=== PATIENT | male | born 1955 | race Hispanic/Latino ===

== ENCOUNTER → 2023-02-18 | Outpatient (CLI) | payer OTHER ==
[2023-02-18 14:03] LABS: APPEARANCE BODY FLUID TURBID (CLEAR); COLOR,BODY FLUID LT YELLOW (LT YELLOW); SPECIMENTYPE,BODY FLUID SYNOVIAL; TOTAL VOLUME,BODY FLUID 40 mL
[2023-02-18 14:04] LABS: BODY FLUID WBC 2335 /cu. mm.
[2023-02-18 14:05] LABS: BODY FLUID RBC 1850 /cu. mm.
[2023-02-18 14:13] LABS: BF LYMPHOCYTE 20 %; BF MONOCYTE 8 %
[2023-02-18 20:41] LABS: CRYSTALS, SYNOVIAL FLUID Ca Phyrophos - Few
== END | disposition home or self-care (01) ==
LOC: LAB 10:43
PROVIDERS: ATTEND Orthopaedic Surgery
DX: M25.462 Effusion, left knee (principal)
CPT/HCPCS: 87070; 87076; 89051; 89060

== ENCOUNTER → 2024-01-20 | Outpatient (CLI) | payer OTHER | END | disposition home or self-care (01) | LOC: LAB 16:43 | PROVIDERS: ATTEND Student in an Organized Health Care Education/Training Program | DX: M10.9 Gout, unspecified (principal) | CPT/HCPCS: 89060 ==

== ENCOUNTER 2025-02-21 10:48 | Inpatient (IN) | payer OTHER ==
[~2025-02-21] VITALS: Ht 167.6 cm; Wt 88.9 kg
[2025-02-21 11:28] LABS: BASOPHILS # (AUTO) 0.01 K/uL (0.00-0.20); BASOPHILS % (AUTO) 0.1 % (0.0-5.0); EOSINOPHILS # (AUTO) 0.02 K/uL (0.00-0.70); EOSINOPHILS % (AUTO) 0.2 % (0.0-8.0); HEMATOCRIT 39.7 % (42-54); IMMATURE GRANULOCYTE ABSOLUTE 0.02 K/uL (0-1); LYMPHOCYTES # (AUTO) 0.2 K/uL (1.0-4.8); LYMPHOCYTES % (AUTO) 2.1 % (21.0-51.0); MEAN CORPUSCULAR HEMOGLOBIN 31.1 pg (27.0-33.0); MEAN CORPUSCULAR HGB CONC 33.8 g/dL (32.0-36.0); MEAN CORPUSCULAR VOLUME 92.1 fL (79-99); MONOCYTES # (AUTO) 0.3 K/uL (0.1-1.0); MONOCYTES % (AUTO) 3.5 % (3.0-13.0); NEUTROPHILS % (AUTO) 93.9 % (40.0-77.0); PLATELET COUNT (AUTO) 147 K/uL (130-400); RED BLOOD CELL COUNT(AUTO) 4.31 MIL/uL (4.50-6.20); RED CELL DISTRIBUTION WIDTH 14.5 % (11.0-15.5); WHITE BLOOD COUNT (AUTO) 8.6 K/uL (4.8-10.8)
[2025-02-21] MEDS ORDERED: LACTATED RINGERS 1000ML 1,000 ML IV ONE (11:30)
[2025-02-21 11:45] LABS: POTASSIUM 5.8 mmol/L (3.5-5.1)
[2025-02-21] MEDS ORDERED: 0.9%NACL 1000ML 1,000 ML IV SCH (12:00)
--- NOTE | 2025-02-21 12:00 | ERN ---
General Chief Complaint: Hypotension Stated Complaint: DIZZY,FALLS, N/V/D Time Seen by MD: 10:55 History of Present Illness Initial Comments 70-year-old male brought in by EMS from home for hypotension. Patient had nausea or vomiting diarrhea for the last 24 hours or so. Multiple episodes. He felt very weak, he had a controlled fall. EMS found his blood pressure to be 60/40 with a heart rate in the 110. Patient received 1500 mL bolus in the field, blood pressure has improved. No cough congestion or fever. History of d iabetes, hypertension, Parkinson's disease. Allergies: Uncoded Allergies: NO KNOWN ALLERGY (Allergy, Unknown, 02/21/25) Home Meds Reported Medications Isosorbide Dinitrate (Isosorbide Dinitrate) 30 Mg Tablet, 1 TAB PO DAILY for chest pain for 30 Days, #30 TAB 0 Refills 02/21/25 Omeprazole (Omeprazole) 40 Mg Capsule.dr, 1 CAP PO DAILY for 30 Days, #30 CAP 0 Refills 02/21/25 Glipizide (Glipizide) 5 Mg Tablet, 1 TAB PO DAILY for 30 Days, #30 TAB 0 Refills 02/21/25 Lisinopril (Lisinopril) 20 Mg Tablet, 1 TAB PO DAILY for 30 Days, #30 TAB 0 Refills 02/21/25 Folic Acid/Vitamin B Comp W-C ([place]-Giselle Tablet) 0.8 Mg Tablet, 1 TAB PO DAILY for 30 Days, #30 TAB 0 Refills 02/21/25 Ropinirole HCl (Ropinirole HCl) 0.25 Mg Tablet, 1 TAB PO HS for 30 Days, #30 TAB 0 Refills 02/21/25 Aspirin (ASPIRIN 81 MG ECTAB) 81 Mg Ectab, 81 MG PO DAILY, TAB.EC 02/21/25 Rosuvastatin Calcium (Rosuvastatin Calcium) 5 Mg Tablet, 1 TAB PO DAILY 02/21/25 Gabapentin (Gabapentin) 100 Mg Capsule, 100 MG PO TID 02/21/25 Atenolol (Atenolol) 50 Mg Tablet, 1 TAB PO DAILY 02/21/25 Carbidopa/Levodopa (Carbidopa-Levodopa 25-100 Tab) 25 Mg-100 Mg Tablet, 1.5 TAB PO TID 02/21/25 Past Medical History Past Medical History: Diabetes-Type II, Hypertension Medical History Other: PARKINSONS Past Surgical History: Unknown ROS Dictation CONSTITUTIONAL: Weakness HEAD/FACE: No signs of trauma. EENT: No eye pain, no blurred vision, no tearing, no double vision, no ear pain, no ear discharge, no nose pain, no nasal congestion, no throat pain, no throat swelling, no mouth pain. RESPIRATORY: No cough, no orthopnea, no SOB, no stridor, no wheezing. CARDIOVASCULAR: No chest pain, no edema, no palpitations, no syncope. GASTROINTESTINAL/ABDOMINAL: Vomiting diarrhea GENITOURINARY: No abnormal discharge, no dysuria, no frequent urination, no hematuria. No complaints of pain in the genitals. MUSCULOSKELETAL: No back pain, no gout, no joint pain, no joint swelling, no muscle pain, no muscle stiffness, no neck pain. INTEGUMENTARY: No change in color, no change in hair/nails, no dryness, no lesion, no lumps, no rash. NEUROLOGICAL/PSYCH: No anxiety, not depressed, no emotional problem, no headache, no numbness, no pre-existing deficit, no history of seizures, no tremors, no weakness. HEMATOLOGIC/LYMPHATIC: Not anemic, no history of blood clots, no apparent bleeding, no bruising, glands not swollen. All Systems Negative, Except as Noted. Physical Exam Physical Exam Dictation VITAL SIGNS: Reviewed. GENERAL APPEARANCE: Alert, oriented x3, no acute distress HEAD AND FACE: Non-traumatic. EYES: PERRL, pink conjunctivas, eyelid no trauma, anterior chamber clear. EARS: Pinnas intact and no signs of trauma or erythema. Ear canals clear and no discharge. TMs no erythema. NOSE: No discharge, no bleeding. OROPHARYNX: Mouth normal, teeth no caries, tongue pink. Pharynx clear, no erythema. Tonsils no exudates, no abscesses noted. Mucous membrane moist. NECK: Supple, non-tender, no thyromegaly, no masses, no JVD, no bruits. BREAST: Deferred. CHEST: No tenderness, no crepitus, no paradoxical movement, no retractions. LUNGS: Clear, well-ventilated, symmetric, no rales, no wheezing, no rhonchi, no stridor, good breath sounds bilaterally. HEART: Regular rate, regular rhythm, no murmur, no gallops. VASCULAR: No peripheral edema. ABDOMEN: Soft, positive bowel sounds, nondistended, no guarding, nontender, no rebound, no masses no hepatomegaly, no splenomegaly, no Last's sign, no hernias. RECTAL: Deferred. GENITAL: Deferred. NEUROLOGICAL: Normal speech, gross motor function intact, gross sensory function intact. MUSCULOSKELETAL: Neck nontender, full range of motion, back nontender, full range of motion. EXTREMITIES: Nontender, full range of motion. SKIN: Color pink, dry, no turgor, no rash, no lacerations, no abrasions, no contusions. LYMPHATICS: Deferred. Results Laboratory and Microbiology Lab and Micro Result Laboratory Tests Test 02/21/25 11:14 White Blood Count 8.6 K/uL (4.8-10.8) Red Blood Count 4.31 MIL/uL (4.50-6.20) L Hemoglobin 13.4 g/dL (14.0-18.0) L Hematocrit 39.7 % (42-54) L Mean Corpuscular Volume 92.1 fL (79-99) Mean Corpuscular Hemoglobin 31.1 pg (27.0-33.0) Mean Corpuscular Hemoglobin Concent 33.8 g/dL (32.0-36.0) Red Cell Distribution Width 14.5 % (11.0-15.5) Platelet Count 147 K/uL (130-400) Mean Platelet Volume 11.1 fL (7.5-10.5) H Immature Granulocyte % (Auto) 0.2 % (0-1) Neutrophils (%) (Auto) 93.9 % (40.0-77.0) H Lymphocytes (%) (Auto) 2.1 % (21.0-51.0) L Monocytes (%) (Auto) 3.5 % (3.0-13.0) Eosinophils (%) (Auto) 0.2 % (0.0-8.0) Basophils (%) (Auto) 0.1 % (0.0-5.0) Neutrophils # (Auto) 8.0 K/uL (1.8-7.7) H Lymphocytes # (Auto) 0.2 K/uL (1.0-4.8) L Monocytes # (Auto) 0.3 K/uL (0.1-1.0) Eosinophils # (Auto) 0.02 K/uL (0.00-0.70) Basophils # (Auto) 0.01 K/uL (0.00-0.20) Absolute Immature Granulocyte (auto 0.02 K/uL (0-1) Nucleated Red Blood Cells 0.0 % (0.0-0.19) Sodium Level 136 mmol/L (136-145) Potassium Level 5.8 mmol/L (3.5-5.1) H Chloride Level 107 mmol/L (101-111) Carbon Dioxide Level 20 mmol/L (21-32) L Blood Urea Nitrogen 47 mg/dL (7-18) H Creatinine 2.0 mg/dL (0.5-1.3) H Glomerular Filtration Rate Calc 35 mL/min (>90) Random Glucose 201 mg/dL (70-105) H Lactic Acid Level 2.5 mmol/L (0.8-2.5) Total Calcium 7.7 mg/dL (8.5-10.1) L Total Creatine Kinase 68 U/L (21-232) Troponin I High Sensitivity 14 ng/L (4-75) MDM CC: Dizziness hypotension diarrhea Historian: Patient Comorbidities: Hypertension, diabetes, Parkinson's Limitations by social determinants of health: None Differential diagnosis, SIRS, sepsis, dehydration, surgical pathology, other. Vital signs: Blood pressure 90/51 initially heart rate of 101, he did have a slight decrease in the blood pressure 83/44. He received fluids. Afebrile. Labs (independently ordered and interpreted by me): no leukocytosis, left shift no anemia. 93% neutrophils. No bands. Chemistry panel shows potassium of 5.8, creatinine 2 BUN of 47 likely prerenal. Lactic acid 2.5. CK troponin normal. CT abdomen and pelvis without contrast (independently interpreted by me ): Enteric colitis, no surgical pathology. Treatment in ED: IV fluids ( patient already received 1.5 L pre-hospital, received another L here), IV Zosyn. On sepsis focused re-evaluation after the fluids in his Zosyn patient has stable vital signs and normal perfusion. Plan: Admit for IV rehydration. Consultation: Hospitalist for admission. ED Course Orders Procedure Category Date Status Time Cbc With Differential LAB 02/21/25 In Process 10:59 Blood Cult NAIDA 02/21/25 In Process 10:59 Urinalysis Profile LAB 02/21/25 Logged 10:59 Culture Urine NAIDA 02/21/25 Logged 10:59 Creatine Kinase, Total LAB 02/21/25 Complete 10:59 Troponin I High LAB 02/21/25 Complete Sensitivity 10:59 Lactic Acid LAB 02/21/25 Complete 10:59 Basic Metabolic Panel LAB 02/21/25 Complete 10:59 Ct Abdomen/Pelvis W/O CT 02/21/25 Resulted Contrast 10:59 Chest 1vw RAD 02/21/25 Taken 10:59 Lactated Ringers PHA 02/21/25 Complete 1000ml (Lactated 11:30 0.9%Nacl 1000ml (Ns PHA 02/21/25 Complete 1000ml) 12:00 Ct Head/Brain W/O CT 02/21/25 Taken Contrast 12:00 Ct Cervical Spine W/O CT 02/21/25 Taken Contrast 12:00 Zosyn 3.375gm+Ns 50ml PHA 02/21/25 In Process (Zosyn 3.375gm+Ns 12:30 12 Lead Ekg Tracing- EKG 02/21/25 Logged Technical 12:37 Current Medications Medications (Trade) Dose Ordered Sig/Silvia Route PRN Reason Start Time Stop Time Status Last Admin Dose Admin Lactated Ringer's 1,000 ml @ 0 mls/hr ONCE ONCE IV 02/21/25 11:30 02/21/25 12:03 DC Piperacillin Sod/ Tazobactam Sod (Zosyn 3.375gm+NS 50ml) 3.375 gm Q8H IV 02/21/25 12:30 03/03/25 12:29 Sodium Chloride 1,000 ml @ 999 mls/hr Q1H1M IV 02/21/25 12:00 02/21/25 12:03 DC Vital Signs Date Time Temp Pulse Resp B/P (MAP) Pulse Ox O2 Delivery O2 Flow Rate FiO2 02/21/25 11:00 103 14 83/44 98 Room Air* 0 21 02/21/25 10:50 99.1 101 16 90/51 99 Room Air 0 DX & DISP Disposition: Inpatient Departure Impression: Primary Impression: Dehydration Additional Impressions: Enteritis, BHARATH (acute kidney injury) Critical Time: 30 minutes (Critical Care Procedure NoteAuthorized and Performed by: meTotal critical care time: Approximately 36 minutesDue to a high probability of clinically significant, life threatening deterioration, the patient required my highest level of preparedness to intervene emergently and I personally spent this critical care time directly and personally managing the patient. This critical care time included obtaining a history; examining the patient; pulse oximetry; ordering and review of studies; arranging urgent treatment with development of a management plan; evaluation of patient's response to treatment; frequent reassessment; and, discussions with other providers.This critical care time was performed to assess and manage the high probability of imminent, life-threatening deterioration that could result in multi-organ failure. It was exclusive of separately billable procedures and treating other patients and teaching time.Please see MDM section and the rest of the note for further information on patient assessment and treatment.) Condition: Stable Referrals: SELF,REFERRAL (PCP) AICHA KINCAID DO Feb 21, 2025 12:00
--- NOTE | 2025-02-21 12:00 | NUR ---
PLACED 20G ON LEFT FOREARM. OBTAINED BLOOD SAMPLE AND SENDED TO LAB.
--- NOTE | 2025-02-21 12:25 | HMCIMG ---
CT ABDOMEN/PELVIS W/O CONTRAST HISTORY: Diarrhea COMPARISON: None TECHNIQUE: Multiple sequential axial images of the abdomen and pelvis were obtained from the dome of the diaphragm through symphysis pubis. Patient was not given contrast through intravenous route. Oral contrast was not given. FINDINGS: No pleural effusion is seen bilaterally. There is no evidence of parenchymal disease or pulmonary nodule of the visualized lower lungs. Degenerative changes of the thoracolumbar spine are present. Postop changes are seen with orthopedic fixation plates and screws at L3, L4, L5 and S1 levels. The heart is not enlarged. Gastric distention is seen. Liver measures 18 cm. There is mild small bowel dilatation with fluid-filled small bowel loops and colon suspicious for enterocolitis in the proper clinical setting. The liver, spleen, adrenal glands and pancreas are unremarkable. There is no evidence of hydronephrosis bilaterally. No evidence of renal stone is seen. Fecal material is seen in the colon. There are normal size retroperitoneal and mesenteric lymph nodes. No ascites is seen. Atherosclerotic changes are present. No definite CT evidence of acute appendicitis is seen. There is mild diverticulosis. Pelvic sidewalls are symmetric bilaterally. Bladder is well distended without wall thickening. IMPRESSION: 1. There is mild small bowel dilatation with fluid-filled small bowel loops and colon suspicious for enterocolitis in the proper clinical setting. CT was performed with one or more following dose reduction techniques: automated exposure control, adjustment of the mA and kv according to patient's size, or use of a iterative reconstruction technique.
[2025-02-21] MEDS ORDERED: AEC81 PO (12:34)
[2025-02-21] MEDS ORDERED: ATEN50TA PO (12:34)
[2025-02-21] MEDS ORDERED: ROSU5TAB51 PO (12:34)
[2025-02-21] MEDS ORDERED: CARB1TAB35 PO (12:34)
[2025-02-21] MEDS ORDERED: GABA-529 PO (12:34)
[2025-02-21] MEDS ORDERED: FOLI0.8T22 PO (12:35)
[2025-02-21] MEDS ORDERED: ROPI0.2535 PO (12:35)
[2025-02-21] MEDS ORDERED: LISI20TA24 PO (12:36)
[2025-02-21] MEDS ORDERED: GLIP5TAB15 PO (12:39)
[2025-02-21] MEDS ORDERED: OMEP40CA21 PO (12:39)
[2025-02-21] MEDS ORDERED: ISOS30TA11 PO (12:40)
[2025-02-21] MEDS ORDERED: TIRZ5PEN SQ (12:47)
--- NOTE | 2025-02-21 12:47 | NUR ---
HOME MEDICATIONS PLSCED IN SYSTEM. WAITING TO BE RECONSILED BY PHYSICIAN.
--- NOTE | 2025-02-21 12:48 | HMCIMG ---
CT HEAD/BRAIN W/O CONTRAST HISTORY: Status post fall COMPARISON: None TECHNIQUE: Multiple sequential axial images of the head were obtained from the base of the skull through vertex. Patient was not given contrast through intravenous route. FINDINGS: The ventricles and extraventricular CSF spaces are dilated consistent with cerebral atrophy. Nonspecific white matter changes seen. There is no midline shift, mass effect or herniation. No acute intracranial bleed is seen. Visualized portion of the paranasal sinuses are grossly within normal limits. IMPRESSION: 1. No acute intracranial bleed is seen. 2. Atrophy with white matter changes. CT was performed with one or more following dose reduction techniques: automated exposure control, adjustment of the mA and kv according to patient's size, or use of a iterative reconstruction technique.
--- NOTE | 2025-02-21 12:48 | HMCIMG ---
CT CERVICAL SPINE W/O CONTRAST HISTORY: Status post fall COMPARISON: None TECHNIQUE: Multiple sequential axial images of the cervical spine were obtained including post processing sagittal and coronal reconstruction images. Patient was not given contrast through intravenous route. FINDINGS: There are degenerative changes with cervical spine spondylosis. Disc space narrowing is seen at the C5-C6 level. There is straightening of normal lordotic cervical curvature which may be related to muscle spasm or positioning. There is no loss of vertebral height. Evaluation for disc and cord pathology is limited with CT study. No evidence of fracture or dislocation is seen. IMPRESSION: 1. No fracture is seen. DJD with cervical spine spondylosis. CT was performed with one or more following dose reduction techniques: automated exposure control, adjustment of the mA and kv according to patient's size, or use of a iterative reconstruction technique.
--- NOTE | 2025-02-21 12:49 | NUR ---
OBTAINED URINE SAMPLE AND SENDED TO LAB.
--- NOTE | 2025-02-21 12:50 | HMCIMG ---
CHEST 1VW HISTORY: Sepsis COMPARISON: 10/20/2005 FINDINGS: A frontal projection of the chest was obtained. No acute pulmonary infiltrates is seen. The heart is normal in size. Prominent interstitial markings are seen. Degenerative changes are seen. No evidence of aortic calcification is seen. IMPRESSION: 1. No acute pulmonary infiltrate is seen.
[2025-02-21] MEDS ORDERED: LOPERAMIDE HCL 2 MG CAP PO PRN (13:00)
[2025-02-21] MEDS ORDERED: ondanSETRON 4MG INJ IVP PRN (13:00)
[2025-02-21 13:17] LABS: APPEARANCE,URINE CLEAR (CLEAR); BILIRUBIN,URINE NEGATIVE (NEGATIVE); COLOR,URINE LIGHT-YELLOW (YELLOW); GLUCOSE, URINE (UA) NEGATIVE (NEGATIVE); KETONES,URINE NEGATIVE (NEGATIVE); LEUKOCYTE ESTERASE ,URINE NEGATIVE Leu/uL (NEGATIVE); NITRATE,URINE NEGATIVE (NEGATIVE); OCCULT BLOOD,URINE NEGATIVE (NEGATIVE); PROTEIN,URINE NEGATIVE (NEGATIVE); UROBILINOGEN,URINE 0.2 mg/dL (0.2-1.0)
[2025-02-21 13:18] LABS: ADD UA MICROSCOPIC NO
--- NOTE | 2025-02-21 13:29 | EKG ---
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
[2025-02-21] MEDS: ZOSYN 3.375GM +NS 50ML IV SCH (14:04)
[2025-02-21] MEDS: 1/2 NS 1000ML 1,000 ML IV SCH (14:05)
[2025-02-21 16:00] VITALS: BP 130/76; PULSE 84; RESP 19; TEMP 97.9
[2025-02-21 16:30] VITALS: O2SAT 98
--- NOTE | 2025-02-21 16:30 | NUR ---
Received from ER The patient is received from ER with report form the ER nurse. This patient is in no distress and has IV fluids infusing by PIV. HE denies pain and ambulates with help.
--- NOTE | 2025-02-21 16:31 | NUR ---
Call ozuna is in reach and the bed is in a low psition. The patient is encouraged to call with any of his needs or concerns.
[2025-02-21 19:00] VITALS: BP 133/82; PULSE 79; RESP 24; TEMP 98.3
[2025-02-21 20:20] VITALS: O2SAT 100
[2025-02-21] MEDS: LOPERAMIDE HCL 2 MG CAP PO PRN (20:26)
--- NOTE | 2025-02-21 22:52 | HP ---
HISTORY AND PHYSICAL NOTE DATE OF CONSULTATION: 02/21/25 REASON FOR CONSULTATION: Nausea vomiting and diarrhea HISTORY OF PRESENT ILLNESS: 70-year-old male brought in by EMS from home for hypotension. Patient had nausea or vomiting diarrhea for the last 24 hours or so. Multiple episodes. He felt very weak, he had a controlled fall. EMS found his blood pressure to be 60/40 with a heart rate in the 110. Patient received 1500 mL bolus in the field, blood pressure has improved. No cough congestion or fever. History of diabetes, hypertension, Parkinson's disease. Allergies: Uncoded Allergies: NO KNOWN ALLERGY (Allergy, Unknown, 02/21/25) Home Meds Reported Medications Isosorbide Dinitrate (Isosorbide Dinitrate) 30 Mg Tablet, 1 TAB PO DAILY for chest pain for 30 Days, #30 TAB 0 Refills 02/21/25 Omeprazole (Omeprazole) 40 Mg Capsule.dr, 1 CAP PO DAILY for 30 Days, #30 CAP 0 Refills 02/21/25 Glipizide (Glipizide) 5 Mg Tablet, 1 TAB PO DAILY for 30 Days, #30 TAB 0 Refills 02/21/25 Lisinopril (Lisinopril) 20 Mg Tablet, 1 TAB PO DAILY for 30 Days, #30 TAB 0 Refills 02/21/25 Folic Acid/Vitamin B Comp W-C ([place]-Giselle Tablet) 0.8 Mg Tablet, 1 TAB PO DAILY for 30 Days, #30 TAB 0 Refills 02/21/25 Ropinirole HCl (Ropinirole HCl) 0.25 Mg Tablet, 1 TAB PO HS for 30 Days, #30 TAB 0 Refills 02/21/25 Aspirin (ASPIRIN 81 MG ECTAB) 81 Mg Ectab, 81 MG PO DAILY, TAB.EC 02/21/25 Rosuvastatin Calcium (Rosuvastatin Calcium) 5 Mg Tablet, 1 TAB PO DAILY 02/21/25 Gabapentin (Gabapentin) 100 Mg Capsule, 100 MG PO TID 02/21/25 Atenolol (Atenolol) 50 Mg Tablet, 1 TAB PO DAILY 02/21/25 Carbidopa/Levodopa (Carbidopa-Levodopa 25-100 Tab) 25 Mg-100 Mg Tablet, 1.5 TAB PO TID 02/21/25 Past History Past Medical History Past Medical History: Diabetes-Type II, Hypertension Medical History Other: PARKINSONS Past Surgical History: Unknown Review of Systems ROS Dictation CONSTITUTIONAL: Weakness HEAD/FACE: No signs of trauma. EENT: No eye pain, no blurred vision, no tearing, no double vision, no ear pain, no ear discharge, no nose pain, no nasal congestion, no throat pain, no throat swelling, no mouth pain. RESPIRATORY: No cough, no orthopnea, no SOB, no stridor, no wheezing. CARDIOVASCULAR: No chest pain, no edema, no palpitations, no syncope. GASTROINTESTINAL/ABDOMINAL: Vomiting diarrhea GENITOURINARY: No abnormal discharge, no dysuria, no frequent urination, no hematuria. No complaints of pain in the genitals. MUSCULOSKELETAL: No back pain, no gout, no joint pain, no joint swelling, no muscle pain, no muscle stiffness, no neck pain. INTEGUMENTARY: No change in color, no change in hair/nails, no dryness, no lesion, no lumps, no rash. NEUROLOGICAL/PSYCH: No anxiety, not depressed, no emotional problem, no headache, no numbness, no pre-existing deficit, no history of seizures, no tremors, no weakness. HEMATOLOGIC/LYMPHATIC: Not anemic, no history of blood clots, no apparent bleeding, no bruising, glands not swollen. All Systems Negative, Except as Noted. ALLERGIES: Uncoded Allergies: NO KNOWN ALLERGY (Allergy, Unknown, 02/21/25) HOME MEDS: Reported Medications Tirzepatide (Mounjaro) 5 Mg/0.5 Ml Pen.injctr, 5 MG SQ AD 02/21/25 Isosorbide Dinitrate (Isosorbide Dinitrate) 30 Mg Tablet, 1 TAB PO DAILY for chest pain for 30 Days, #30 TAB 0 Refills 02/21/25 Omeprazole (Omeprazole) 40 Mg Capsule.dr, 1 CAP PO DAILY for 30 Days, #30 CAP 0 Refills 02/21/25 Glipizide (Glipizide) 5 Mg Tablet, 1 TAB PO DAILY for 30 Days, #30 TAB 0 Refills 02/21/25 Lisinopril (Lisinopril) 20 Mg Tablet, 1 TAB PO DAILY for 30 Days, #30 TAB 0 Refills 02/21/25 Folic Acid/Vitamin B Comp W-C ([place]-Giselle Tablet) 0.8 Mg Tablet, 1 TAB PO DAILY for 30 Days, #30 TAB 0 Refills 02/21/25 Ropinirole HCl (Ropinirole HCl) 0.25 Mg Tablet, 1 TAB PO HS for 30 Days, #30 TAB 0 Refills 02/21/25 Aspirin (ASPIRIN 81 MG ECTAB) 81 Mg Ectab, 81 MG PO DAILY, TAB.EC 02/21/25 Rosuvastatin Calcium (Rosuvastatin Calcium) 5 Mg Tablet, 1 TAB PO DAILY 02/21/25 Gabapentin (Gabapentin) 100 Mg Capsule, 100 MG PO TID 02/21/25 Atenolol (Atenolol) 50 Mg Tablet, 1 TAB PO DAILY 02/21/25 Carbidopa/Levodopa (Carbidopa-Levodopa 25-100 Tab) 25 Mg-100 Mg Tablet, 1.5 TAB PO TID 02/21/25 INPATIENT MEDS: Current Medications Medications Dose Ordered Sig/Silvia Start Time Stop Time Status Last Admin Piperacillin Sod/ Tazobactam Sod 3.375 gm Q8H 02/21/25 12:30 03/03/25 12:29 02/21/25 20:22 Loperamide HCl 2 mg AD PRN 02/21/25 13:00 03/23/25 12:59 02/21/25 20:26 Ondansetron HCl 4 mg Q6H PRN 02/21/25 13:00 03/23/25 12:59 Sodium Chloride 1,000 ml @ 150 mls/hr Q6H40M 02/21/25 13:00 03/23/25 12:59 02/21/25 14:05 Pantoprazole Sodium 40 mg DAILY 02/22/25 09:00 03/24/25 08:59 VITAL SIGNS Vital Signs Date Time Temp Pulse Resp B/P (MAP) Pulse Ox O2 Delivery O2 Flow Rate FiO2 02/21/25 20:20 100 Room Air* 0 21 02/21/25 19:00 98.2 79 24 133/82 100 Room Air 02/21/25 16:30 98 Room Air* 0 21 02/21/25 16:00 97.9 84 19 130/76 99 Room Air 02/21/25 11:00 103 14 83/44 98 Room Air* 0 21 02/21/25 10:50 99.1 101 16 90/51 99 Room Air 0 PHYSICAL EXAM Physical Exam Physical Exam Physical Exam Dictation VITAL SIGNS: Reviewed. GENERAL APPEARANCE: Alert, oriented x3, no acute distress HEAD AND FACE: Non-traumatic. EYES: PERRL, pink conjunctivas, eyelid no trauma, anterior chamber clear. EARS: Pinnas intact and no signs of trauma or erythema. Ear canals clear and no discharge. TMs no erythema. NOSE: No discharge, no bleeding. OROPHARYNX: Mouth normal, teeth no caries, tongue pink. Pharynx clear, no erythema. Tonsils no exudates, no abscesses noted. Mucous membrane moist. NECK: Supple, non-tender, no thyromegaly, no masses, no JVD, no bruits. BREAST: Deferred. CHEST: No tenderness, no crepitus, no paradoxical movement, no retractions. LUNGS: Clear, well-ventilated, symmetric, no rales, no wheezing, no rhonchi, no stridor, good breath sounds bilaterally. HEART: Regular rate, regular rhythm, no murmur, no gallops. VASCULAR: No peripheral edema. ABDOMEN: Soft, positive bowel sounds, nondistended, no guarding, nontender, no rebound, no masses no hepatomegaly, no splenomegaly, no Last's sign, no hernias. RECTAL: Deferred. GENITAL: Deferred. NEUROLOGICAL: Normal speech, gross motor function intact, gross sensory function intact. MUSCULOSKELETAL: Neck nontender, full range of motion, back nontender, full range of motion. EXTREMITIES: Nontender, full range of motion. SKIN: Color pink, dry, no turgor, no rash, no lacerations, no abrasions, no contusions. LYMPHATICS: Deferred. LABORATORY RESULTS Laboratory Tests 02/21/25 11:14: White Blood Count 8.6, Red Blood Count 4.31, Hemoglobin 13.4, Hematocrit 39.7, Mean Corpuscular Volume 92.1, Mean Corpuscular Hemoglobin 31.1, Mean Corpuscular Hemoglobin Concent 33.8, Red Cell Distribution Width 14.5, Platelet Count 147, Mean Platelet Volume 11.1, Immature Granulocyte % (Auto) 0.2, Neutrophils (%) (Auto) 93.9, Lymphocytes (%) (Auto) 2.1, Monocytes (%) (Auto) 3.5, Eosinophils (%) (Auto) 0.2, Basophils (%) (Auto) 0.1, Neutrophils # (Auto) 8.0, Lymphocytes # (Auto) 0.2, Monocytes # (Auto) 0.3, Eosinophils # (Auto) 0.02, Basophils # (Auto) 0.01, Absolute Immature Granulocyte (auto 0.02, Nucleated Red Blood Cells 0.0, White Cell Morphology Comment See comments, Sodium Level 136, Potassium Level 5.8, Chloride Level 107, Carbon Dioxide Level 20, Blood Urea Nitrogen 47, Creatinine 2.0, Glomerular Filtration Rate Calc 35, Random Glucose 201, Lactic Acid Level 2.5, Total Calcium 7.7, Total Creatine Kinase 68, Troponin I High Sensitivity 14 02/21/25 12:58: Urine Color LIGHT-YELLOW, Urine Appearance CLEAR, Urine pH 5.0, Urine Specific [place] 1.013, Urine Protein NEGATIVE, Urine Glucose (UA) NEGATIVE, Urine Ketones NEGATIVE, Urine Occult Blood NEGATIVE, Urine Nitrate NEGATIVE, Urine Bilirubin NEGATIVE, Urine Urobilinogen 0.2, Urine Leukocyte Esterase NEGATIVE 02/21/25 18:08: Lactic Acid Level 1.9 PROBLEM LIST: (1) Dehydration ICD Codes: E86.0 - Dehydration (2) Enteritis ICD Codes: K52.9 - Noninfective gastroenteritis and colitis, unspecified (3) BHARATH (acute kidney injury) ICD Codes: N17.9 - Acute kidney failure, unspecified PLAN Hydrate with IV fluids progress diet as tolerated follow up on kidney function ESDRAS AVUGHN MD Feb 21, 2025 22:52
[2025-02-22 00:53] VITALS: BP 139/73; PULSE 88; RESP 24; TEMP 98.4
[2025-02-22 04:00] VITALS: BP 121/64; PULSE 76; RESP 24; TEMP 98.2
[2025-02-22 06:29] LABS: BASOPHILS # (AUTO) 0.02 K/uL (0.00-0.20); BASOPHILS % (AUTO) 0.3 % (0.0-5.0); EOSINOPHILS % (AUTO) 2.8 % (0.0-8.0); HEMATOCRIT 40.7 % (42-54); IMMATURE GRANULOCYTE ABSOLUTE 0.03 K/uL (0-1); LYMPHOCYTES # (AUTO) 1.5 K/uL (1.0-4.8); LYMPHOCYTES % (AUTO) 20.4 % (21.0-51.0); MEAN CORPUSCULAR HEMOGLOBIN 30.8 pg (27.0-33.0); MEAN CORPUSCULAR HGB CONC 33.4 g/dL (32.0-36.0); MEAN CORPUSCULAR VOLUME 92.3 fL (79-99); MONOCYTES # (AUTO) 0.6 K/uL (0.1-1.0); MONOCYTES % (AUTO) 7.6 % (3.0-13.0); NEUTROPHILS % (AUTO) 68.5 % (40.0-77.0); PLATELET COUNT (AUTO) 144 K/uL (130-400); RED BLOOD CELL COUNT(AUTO) 4.41 MIL/uL (4.50-6.20); RED CELL DISTRIBUTION WIDTH 14.9 % (11.0-15.5); WHITE BLOOD COUNT (AUTO) 7.2 K/uL (4.8-10.8)
[2025-02-22 06:43] LABS: ALBUMIN 2.5 g/dL (3.5-5.0); BILIRUBIN,TOTAL 0.6 mg/dL (0.2-1.0); CREATININE 1.8 mg/dL (0.5-1.3); POTASSIUM 4.8 mmol/L (3.5-5.1); TOTAL PROTEIN, SERUM 6.1 g/dL (6.0-8.3)
[2025-02-22] MEDS ORDERED: TAMS-1 PO (07:56)
[2025-02-22 08:00] VITALS: BP 130/75; PULSE 74; RESP 19; TEMP 98.1
[2025-02-22] MEDS: PANTOPrazole 40 MG/VIAL IVP SCH (08:48)
[2025-02-22 10:14] VITALS: O2SAT 97
[2025-02-22 12:00] VITALS: BP 127/67; PULSE 71; RESP 19; TEMP 98.1
--- NOTE | 2025-02-22 13:17 | NUR ---
DCP -- Home Patient speaks Yi. Patient states he lives with Louisa Tanner, Spouse [phone] in a house with a two step entrance and walk in shower. 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 States able to complete ADL's on his own. States he has a shower chair, cane, walker with a seat and bedside commode. Denies home health services, home care provider or dialysis. PCP - James Beatty MD Pharmacy - [facility]. Upon discharge, states Louisa Tanner, Spouse [phone] and assist with care, as needed. Addendum: 02/22/25 at 1323 by AGATHA HOLLOWAY RN CM Amended: Links added.
--- NOTE | 2025-02-22 13:55 | NUR ---
Called Dr Muñoz to update on status This production underwriter attempted to reach dr muñoz to update on status. No answer. PT in no distress but would like to go home.
--- NOTE | 2025-02-22 15:45 | NUR ---
MAde another attempt to call Dr. Badillo No answer on this attempt. PT would still like to go home. PT is in no distress and ambulting to bathroom as needed.
[2025-02-22 16:00] VITALS: BP 137/62; PULSE 74; RESP 19; TEMP 98
[2025-02-22] MEDS: ASPIRIN 81 MG EC TAB PO SCH (16:31)
[2025-02-22] MEDS: GABApentin 100 MG CAPSULE PO SCH (16:31)
--- NOTE | 2025-02-22 19:32 | NUR ---
DISCHARGE INSTRUCTIONS AND PAPERWORK GIVEN TO PATIENT AT BEDSIDE. PATIENT VERBALIZED UNDERSTANDING. 20G IV TO LEFT FOREARM DISCONTINUE WITH NO COMPLICATIONS. AWAITING PATIENT'S FAMILY MEMBERS TO LOOM FIXER HELPER PATIENT.
--- NOTE | 2025-02-22 19:40 | NUR ---
PATIENT TAKEN DOWN TO ER ENTRANCE VIA WHEELCHAIR. ALL PATIENT'S BELONGINGS TAKEN WITH HIM.
[2025-02-22] MEDS ORDERED: atorVAStatin 20 MG TABLET PO SCH (21:00)
--- NOTE | 2025-02-22 22:12 | DS ---
Discharge Summary DIAGNOSE(S): [ (1) Dehydration ICD Codes: E86.0 - Dehydration (2) Enteritis ICD Codes: K52.9 - Noninfective gastroenteritis and colitis, unspecified (3) BHARATH (acute kidney injury) ICD Codes: N17.9 - Acute kidney failure, unspecified] HOSPITAL COURSE SUMMARY: [Symptoms resolved tolerated diet and was discharged] REED WORKER(S): [None] PROCEDURE(S)/TREATMENT(S): [None] PROBLEM(S): [] FOLLOW-UP TEST(S): [None] DISCHARGE INSTRUCTIONS: [Follow with PCP in 2-3 days] Home Meds Reported Medications Tamsulosin HCl (Flomax) 0.4 Mg Cap.er.24h, 0.4 MG PO AM, CAPSULE. 02/22/25 Tirzepatide (Mounjaro) 5 Mg/0.5 Ml Pen.injctr, 5 MG SQ AD 02/21/25 Isosorbide Dinitrate (Isosorbide Dinitrate) 30 Mg Tablet, 1 TAB PO DAILY for chest pain for 30 Days, #30 TAB 0 Refills 02/21/25 Omeprazole (Omeprazole) 40 Mg Capsule.dr, 1 CAP PO DAILY for 30 Days, #30 CAP 0 Refills 02/21/25 Glipizide (Glipizide) 5 Mg Tablet, 1 TAB PO DAILY for 30 Days, #30 TAB 0 Refills 02/21/25 Lisinopril (Lisinopril) 20 Mg Tablet, 1 TAB PO DAILY for 30 Days, #30 TAB 0 Refills 02/21/25 Folic Acid/Vitamin B Comp W-C ([place]-Giselle Tablet) 0.8 Mg Tablet, 1 TAB PO DAILY for 30 Days, #30 TAB 0 Refills 02/21/25 Ropinirole HCl (Ropinirole HCl) 0.25 Mg Tablet, 1 TAB PO HS for 30 Days, #30 TAB 0 Refills 02/21/25 Aspirin (ASPIRIN 81 MG ECTAB) 81 Mg Ectab, 81 MG PO DAILY, TAB.EC 02/21/25 Rosuvastatin Calcium (Rosuvastatin Calcium) 5 Mg Tablet, 1 TAB PO DAILY 02/21/25 Gabapentin (Gabapentin) 100 Mg Capsule, 100 MG PO TID 02/21/25 Atenolol (Atenolol) 50 Mg Tablet, 1 TAB PO DAILY 02/21/25 Carbidopa/Levodopa (Carbidopa-Levodopa 25-100 Tab) 25 Mg-100 Mg Tablet, 1.5 TAB PO TID 02/21/25 ESDRAS VAUGHN MD Feb 22, 2025 22:12
[2025-02-23] MEDS ORDERED: PANTOPrazole 40 MG TAB DR PO SCH (09:00)
[2025-02-23] MEDS ORDERED: isoSORbide DInitRATE 10MG TAB PO SCH (09:00)
[2025-02-23] MEDS ORDERED: Vitamin B Complex/Vit C/Folic Acid PO SCH (16:00)
[2025-02-23] MEDS ORDERED: tamSULOsin HCL 0.4 MG CAP.ER.24H PO SCH (16:00)
[2025-03-01] MEDS ORDERED: TIRZEPATIDE 5 MG SQ SCH (09:00)
== END 2025-02-22 19:50 | disposition home or self-care (01) | DRG 392 ==
LOC: EDH 10:48 → EDHIP 15:12 → 3DH 15:46
PROVIDERS: ADMIT Internal Medicine; ATTEND Internal Medicine
DX: K52.9 Noninfective gastroenteritis and colitis, unspecified (principal); N17.9 Acute kidney failure, unspecified; E86.0 Dehydration; E11.9 Type 2 diabetes mellitus without complications; G20.A1 Parkinson's disease without dyskinesia, without mention of fluctuations; I10 Essential (primary) hypertension; Z79.899 Other long term (current) drug therapy
CPT/HCPCS: 36415; 70450; 71045; 72125; 74176; 80048; 80053; 81003; 82550; 82948; 83605; 84484; 85025; 87040; 87086; 93005; G0378; J2470; J2543